=== PATIENT | male | born 1975 | race Caucasian/White ===

== ENCOUNTER 2024-01-07 06:43 | Day surgery (SDC) | payer MEDICAID ==
[~2024-01-07] VITALS: Ht 172.7 cm; Wt 90.7 kg
[2024-01-07] MEDS ORDERED: SIMETHICONE 40 MG/0.6 ML ML ONE (07:37)
[2024-01-07] MEDS ORDERED: MIDAZOLAM HCL 5 MG/5 ML VIAL ONE ×2 (07:38→09:13)
[2024-01-07] MEDS ORDERED: MEPERIDINE 100 MG INJ. 100 MG/ML VIAL ONE (07:38)
[2024-01-07 12:57] VITALS: O2SAT 98
[2024-01-07 17:19] VITALS: BP_SYST 115; PULSE 75; RESP 18
== END 2024-01-07 10:11 | disposition home or self-care (01) ==
LOC: SDS 06:43 → SMU 06:44 → SDS 10:11
PROVIDERS: ATTEND Internal Medicine Gastroenterology
DX: K50.90 Crohn's disease, unspecified, without complications (principal); K62.89 Other specified diseases of anus and rectum; K64.8 Other hemorrhoids; Z98.890 Other specified postprocedural states; Z79.899 Other long term (current) drug therapy
CPT/HCPCS: 45380; 45386; 99152; 88305; 99153; G0378; J2250; J2175